=== PATIENT | male | born 1975 | race Caucasian/White ===

== ENCOUNTER 2018-03-17 17:00 | Inpatient (IN) | payer MEDICARE ==
--- NOTE | 2018-03-17 17:56 | ED Physician Chart ---
ED Chief Complaint/HPI - Patient Information Date Seen:: 03/17/18 Time Seen:: 17:40 Chief Complaint:: seizures History of Present Illness:: Patient had four 15 second episodes of body tensing today which apparently are his usual seizures. 20 days ago Depakote was discontinued and the patient prescribed phenobarbital 97.2 mg at bed time. Allergies:: Allergies Allergy/AdvReac Type Severity Reaction Status Date / Time No Known Allergies Allergy Verified 03/17/18 17:49 Historian:: EMS Review:: Transfer documents Reviewed ED Review of Systems - Review of Systems General/Constitutional: No fever, No chills Skin: No skin lesions Head: No headache Eyes: No loss of vision ENT: No earache Neck: No neck pain, No swelling Cardio Vascular: No chest pain, No palpitations Pulmonary: No SOB GI: No nausea, No vomiting, No diarrhea G/U: No dysuria, No frequency, No hematuria Musculoskeletal: Back pain, No back pain, No muscle pain Endocrine: No polyuria, No polydipsia Psychiatric: Prior psych history Hematopoietic: No bruising Allergic/Immuno: No urticaria Neurological: No syncope, No focal symptoms ED Past Medical History - Past Medical History Past Medical History: HTN, Thyroid disorder, Arthritis, Other (elevated ammonia ; hypothyroidism cerebral palsy profound mental retardation; spastic diplegia; spastic diplegia) Family History: Other (unavailable) Social History: Care Facility Surgical History: other (not available) Psychiatricy History: Other (severe mental retardation) Medication: Reviewed Family Medical History - Family Member Mother History Unknown: Yes ED Physical Exam - Physical Examination General/Constitutional: Well-developed, well-nourished Other Gen/Cons comments:: Nonverbal Head: Atraumatic Eyes: Lids, conjuctiva normal Skin: Nl inspection, No rash, No skin lesions, No ecchymosis, Well hydrated, No lymphadenopathy ENMT: External ears, nose nl, Nasal exam nl Other ENMT comments:: Edentulous Neck: No nuchal rigidity Respiratory: Nl effort/Exclusion, Clear to Auscultation Cardio Vascular: RRR, No murmur, gallop, rubs, NL S1 S2 GI: No tenderness/rebounding/guarding, No organomegaly : No CVA tenderness Extremities: Normal digits & nails Neuro/Psych: No focal deficits ED Labs/Radiology/EKG Results - Lab Results Results: Laboratory Results - last 24 hr 03/17/18 03/17/18 03/17/18 18:15 18:15 18:15 WBC 9.5 RBC 5.49 Hgb 16.3 Hct 47.1 MCV 85.7 MCH 29.7 MCHC Differential 34.7 RDW 13.0 Plt Count 238 MPV 6.1 Neutrophils % 59.5 Lymphocytes % 30.3 Monocytes % 7.1 Eosinophils % 1.7 Basophils % 1.4 Sodium 133 L Potassium 4.8 Chloride 101 Carbon Dioxide 22.7 Anion Gap 14.1 BUN 13 Creatinine 0.7 Est GFR ( Amer) > 60.0 Est GFR (Non-Af Amer) > 60.0 BUN/Creatinine Ratio 18.6 Glucose 91 Calcium 8.9 Total Bilirubin 0.4 AST 27 ALT 35 Alkaline Phosphatase 56 Ammonia 53 Total Protein 7.0 Albumin 4.2 Globulin 2.8 Albumin/Globulin Ratio 1.5 ED Assessment - Assessment General Assessment: At 1944 phenobarbital level still pending as it is a send out test. As of 1946 patient has had no seizure activity in the emergency department. ED Septic Shock - . Is Septic Shock (SBP<90, OR Lactate>4 mmol\L) present?: No ED Reassessment (Disposition) - Reassessment Reassessment Condition:: Unchanged - Diagnosis Diagnosis:: Seizures; known seizure disorder; severe mental retardation; diplegia - Patient Disposition Admitted to:: Telemetry Spoke to:: Stefano Stephens Admitting Medical Physician:: Stefano Stephens Condition at Disposition:: Stable, Unchanged
[2018-03-17 18:23] LABS: % BASOPHILS 1.4 % (0.0-2.0); % EOSINOPHILS 1.7 % (0.0-5.0); % LYMPHOCYTES 30.3 % (20.0-50.0); % MONOCYTES 7.1 % (2.0-10.0); % NEUTROPHILS 59.5 % (40.0-80.0); BASOPHILE ABSOLUTE 0.1 Th/cumm (0-0.2); EOSINOPHILE ABSOLUTE 0.2 Th/cmm (0.1-0.4); HEMATOCRIT 47.1 % (41.0-60); HEMOGLOBIN 16.3 gm/dL (12-16); LYMPHOCYTE ABSOLUTE 2.9 Th/cmm (1.5-3.0); MEAN CELL VOLUME 85.7 fl (80-99); MEAN CORPUSCULAR HEMOGLOBIN 29.7 pg (26.0-30.0); MEAN CORPUSCULAR HGB CONC 34.7 pg (28.0-36.0); MEAN PLATELET VOLUME 6.1 fl; MONOCYTE ABSOLUTE 0.7 Th/cmm (0.3-1.0); NEUTROPHILE ABSOLUTE 5.6 Th/cmm (1.8-8.0); PLATELET COUNT 238 Th/cmm (150-400); RED BLOOD COUNT 5.49 Mil/cmm (4.30-5.70); WHITE BLOOD COUNT 9.5 Th/cmm (4.8-10.8)
[2018-03-17 18:46] LABS: ALB/GLOB RATIO 1.5 (1.0-1.8); ALBUMIN 4.2 gm/dL (4.2-5.5); ALKALINE PHOSPHATASE 56 U/L (34-104); ANION GAP 14.1 (7.0-16.0); BILIRUBIN,TOTAL 0.4 mg/dL (0.3-1.0); BUN - UREA NITROGEN 13 mg/dL (7-25); CALCIUM SERUM 8.9 mg/dL (8.6-10.3); CARBON DIOXIDE 22.7 mEq/L (21.0-31.0); CHLORIDE 101 mEq/L (98-107); CREATININE - SERUM 0.7 mg/dL (0.7-1.3); GFR AFRICAN-AMERICAN > 60.0 ml/min (>90); GFR NON AFRICAN-AMERICAN > 60.0 ml/min; GLUCOSE 91 mg/dL (70-105); POTASSIUM SERUM 4.8 mEq/L (3.5-5.1); SGOT 27 U/L (13-39); SGPT/ALT 35 U/L (7-52); SODIUM SERUM 133 mEq/L (136-145)
[2018-03-17] MEDS ORDERED: ACETAMINOPHEN 650 MG PO PRN (20:02)
[2018-03-17] MEDS ORDERED: Ipratropium Neb 0.5 mg/2.5 mL UD HHN PRN (20:07)
[2018-03-17] MEDS ORDERED: Albuterol Nebulizer 2.5mg/3mL HHN PRN (20:07)
[2018-03-17] MEDS ORDERED: Non-Formulary Item 1 EA (Lactulose [Lactulose] 30 ML) PO SCH (21:00)
[2018-03-17] MEDS: D5-0.9%NS 1,000 ML IV SCH (21:31)
[2018-03-17] MEDS: Lactulose 10 Gm/15 mL 30mL UDC PO SCH (21:33)
[2018-03-17] MEDS ORDERED: Guaifenesin DM 10 ML UDC PO PRN (23:37)
[2018-03-18] MEDS: Levothyroxine 0.075 Mg Tab PO SCH (06:39)
[2018-03-18] MEDS: D5-0.9%NS 1,000 ML IV SCH ×2 (06:40→16:29)
[2018-03-18] MEDS ORDERED: APAP/Codeine 300 mg/30 mg Tab PO PRN (09:00)
[2018-03-18] MEDS: Benztropine 1 MG TAB PO SCH ×2 (09:58→17:13)
[2018-03-18] MEDS: Lactulose 10 Gm/15 mL 30mL UDC PO SCH ×3 (09:58→20:37)
[2018-03-18] MEDS: Calcium Carb/Vit D 500 mg/200 U Tab PO SCH ×2 (09:58→17:13)
[2018-03-18] MEDS: Lactobacillus Rhamnosus GG 15 Billion CFU CAP.SPRINK PO SCH (09:58)
--- NOTE | 2018-03-18 13:18 | Internal Medicine Prog Note ---
Internal Medicine Subjective - Subjective Service Date: 03/18/18 ([id number] [facility] ) Internal Medicine Objective - Results Result Diagrams: 03/17/18 18:15 03/17/18 18:15 Recent Labs: Laboratory Last Values WBC 9.5 Th/cmm (4.8-10.8) 03/17/18 18:15 RBC 5.49 Mil/cmm (4.30-5.70) 03/17/18 18:15 Hgb 16.3 gm/dL (12-16) 03/17/18 18:15 Hct 47.1 % (41.0-60) 03/17/18 18:15 MCV 85.7 fl (80-99) 03/17/18 18:15 MCH 29.7 pg (26.0-30.0) 03/17/18 18:15 MCHC Differential 34.7 pg (28.0-36.0) 03/17/18 18:15 RDW 13.0 % (11.5-20.0) 03/17/18 18:15 Plt Count 238 Th/cmm (150-400) 03/17/18 18:15 MPV 6.1 fl 03/17/18 18:15 Neutrophils % 59.5 % (40.0-80.0) 03/17/18 18:15 Lymphocytes % 30.3 % (20.0-50.0) 03/17/18 18:15 Monocytes % 7.1 % (2.0-10.0) 03/17/18 18:15 Eosinophils % 1.7 % (0.0-5.0) 03/17/18 18:15 Basophils % 1.4 % (0.0-2.0) 03/17/18 18:15 Sodium 133 mEq/L (136-145) L 03/17/18 18:15 Potassium 4.8 mEq/L (3.5-5.1) 03/17/18 18:15 Chloride 101 mEq/L (98-107) 03/17/18 18:15 Carbon Dioxide 22.7 mEq/L (21.0-31.0) 03/17/18 18:15 Anion Gap 14.1 (7.0-16.0) 03/17/18 18:15 BUN 13 mg/dL (7-25) 03/17/18 18:15 Creatinine 0.7 mg/dL (0.7-1.3) 03/17/18 18:15 Est GFR ( Amer) > 60.0 ml/min (>90) 03/17/18 18:15 Est GFR (Non-Af Amer) > 60.0 ml/min 03/17/18 18:15 BUN/Creatinine Ratio 18.6 03/17/18 18:15 Glucose 91 mg/dL (70-105) 03/17/18 18:15 Calcium 8.9 mg/dL (8.6-10.3) 03/17/18 18:15 Total Bilirubin 0.4 mg/dL (0.3-1.0) 03/17/18 18:15 AST 27 U/L (13-39) 03/17/18 18:15 ALT 35 U/L (7-52) 03/17/18 18:15 Alkaline Phosphatase 56 U/L (34-104) 03/17/18 18:15 Ammonia 53 umol/L (16-53) 03/17/18 18:15 Total Protein 7.0 gm/dL (6.0-8.3) 03/17/18 18:15 Albumin 4.2 gm/dL (4.2-5.5) 03/17/18 18:15 Globulin 2.8 gm/dL 03/17/18 18:15 Albumin/Globulin Ratio 1.5 (1.0-1.8) 03/17/18 18:15 Phenobarbital 12.7 ug/ml (10-40.0) 03/17/18 18:15 - Physical Exam Vitals and I&O: Vital Signs Temp 97.9 F 03/18/18 11:33 Pulse 94 03/18/18 11:33 Resp 18 03/18/18 13:08 BP 148/68 03/18/18 11:33 Pulse Ox 97 03/18/18 11:33 Intake & Output 03/17/18 03/18/18 03/18/18 18:59 06:59 18:59 Intake Total 1155 Output Total 0 Balance 1155 Weight (lbs) 180 lb 179 lb 9.6 oz Intake: Intake, IV Amount 915 D5-0.9%Ns 1,000 ml @ 100 915 mls/hr IV .Q10H [facility] Rx#: [id number] Oral 240 Output: Stool 0 Other: # Voids 2 # Bowel Movements 0 Weight Source Estimated Bedscale Active Medications: Current Medications Acetaminophen (Tylenol) 650 mg PO Q4H PRN PRN Reason: Pain or Fever >101 Stop: 05/16/18 23:30 Acetaminophen/Codeine Phosphate (Tylenol W/Codeine #3) 1 tab PO Q24H PRN PRN Reason: Pain (Moderate) Stop: 05/17/18 08:59 Albuterol Sulfate (Albuterol 2.5mg/3ml Neb Ud) 2.5 mg HHN Q2HRT PRN PRN Reason: Shortness of Breath or Wheeze Stop: 05/16/18 20:06 Benztropine Mesylate (Cogentin) 2 mg PO BID [facility] Stop: 05/17/18 08:59 Last Admin: 03/18/18 09:58 Dose: Not Given Calcium/Vitamin D (Oscal W/Vitamin D) 1 tab PO BID [facility] Stop: 05/17/18 08:59 Last Admin: 03/18/18 09:58 Dose: Not Given Cholecalciferol (Vitamin D3) 2,000 iu PO DAILY [facility] Stop: 05/17/18 08:59 Last Admin: 03/18/18 09:58 Dose: Not Given Docusate Sodium (Colace) 250 mg PO BID [facility] Stop: 05/17/18 08:59 Last Admin: 03/18/18 09:58 Dose: Not Given Guaifenesin/Dextromethorphan (Robitussin Dm) 10 ml PO Q6H PRN PRN Reason: Cough Stop: 05/16/18 23:36 Dextrose/Sodium Chloride (D5-0.9%Ns) 1,000 mls @ 100 mls/hr IV .Q10H [facility] Stop: 05/16/18 20:14 Last Admin: 03/18/18 06:40 Dose: 100 mls/hr Ipratropium [place] (Atrovent Neb 0.5mg/2.5ml) 0.5 mg HHN Q2HRT PRN PRN Reason: Shortness of Breath or Wheeze Stop: 05/16/18 20:06 Lactobacillus Rhamnosus (Culturelle 15b) 1 each PO DAILY [facility] Stop: 05/17/18 08:59 Last Admin: 03/18/18 09:58 Dose: Not Given Lactulose (Cephulac) 30 gm PO TID [facility] Stop: 05/16/18 21:29 Last Admin: 03/18/18 09:58 Dose: Not Given Lamotrigine (Lamictal) 100 mg PO BID [facility]; Protocol Stop: 05/17/18 08:59 Last Admin: 03/18/18 09:58 Dose: Not Given Levetiracetam (Keppra) 2,000 mg PO BID [facility] Stop: 05/17/18 00:00 Last Admin: 03/18/18 08:21 Dose: 2,000 mg Levocarnitine (Carnitor) 990 mg PO TID [facility] Stop: 05/16/18 20:59 Last Admin: 03/18/18 09:58 Dose: Not Given Levothyroxine Sodium (Synthroid) 0.075 mg PO QDAC [facility] Stop: 05/17/18 07:29 Last Admin: 03/18/18 06:39 Dose: 0.075 mg Loratadine (Claritin) 10 mg PO Q24HR PRN PRN Reason: Allergy Symptoms Stop: 05/16/18 20:01 Lorazepam (Ativan) 1 mg IV Q4H PRN; Protocol PRN Reason: Seizure Stop: 05/16/18 20:06 Magnesium Oxide (Mag-Oxide) 400 mg PO BID [facility] Stop: 05/17/18 08:59 Last Admin: 03/18/18 09:58 Dose: Not Given Ondansetron HCl (Zofran) 4 mg IV Q8H PRN PRN Reason: Nausea / Vomiting Stop: 05/16/18 20:06 Phenobarbital (Phenobarbital) 97.2 mg PO BID [facility] Stop: 05/17/18 13:29 Sodium Chloride (Nacl Tab) 2 gm PO DAILY [facility] Stop: 05/17/18 08:59 Last Admin: 03/18/18 09:58 Dose: Not Given Tamsulosin HCl (Flomax) 0.4 mg PO BID [facility] Stop: 05/17/18 16:59 Topiramate (Topamax) 200 mg PO BID [facility] Stop: 05/16/18 23:44 Last Admin: 03/18/18 10:00 Dose: 200 mg Ziprasidone (Geodon) 20 mg PO HS [facility]; Protocol Stop: 05/16/18 20:59 Last Admin: 03/17/18 21:32 Dose: 20 mg
--- NOTE | 2018-03-18 14:47 | History & Physical ---
ADMIT DATE: 03/18/2018 CHIEF COMPLAINT: Seizures. HISTORY OF PRESENT ILLNESS: This is a 42-year-old male who is a retirement resident, admitted to the telemetry unit secondary to four 15 second episode of seizures. For further management, the patient is now admitted here to the telemetry unit. PAST MEDICAL HISTORY: Hypertension, hypothyroidism, arthritis, hyperammonemia, cerebral palsy, profound MR, spastic diplegia. FAMILY HISTORY: Noncontributory. SOCIAL HISTORY: The patient is a retirement resident, requiring 24-hour nursing care. REVIEW OF SYSTEMS: Unable to obtain due to the patient's mental status. PHYSICAL EXAMINATION: GENERAL: The patient is awake, appears chronically ill, no apparent distress. VITAL SIGNS: Temperature 97.9, heart rate 94, blood pressure 148/68, respiration 18, O2 97%. HEENT: Head normocephalic, atraumatic. NECK: Supple. No mass. LUNGS: Few rhonchi. CARDIOVASCULAR: Regular rate and rhythm. ABDOMEN: Soft, nontender. EXTREMITIES: No trace of edema noted. LABORATORY AND DIAGNOSTIC DATA: WBC 9.5, H and H 16.3 and 47.1, platelet of 238. Sodium 133, potassium 4.8, chloride 101, BUN 13, creatinine 0.7. ASSESSMENT: Uncontrolled seizures, hypertension, hypothyroidism, cerebral palsy, mitral regurgitation, spastic diplegia. PLAN: The patient to be admitted to telemetry unit. We will get Neurology on the case. Seizure precautions will be initiated. We will get followup labs for tomorrow morning. Keep the patient on IV fluids for hydration. We will continue to monitor this patient. JOB# [id number]
[2018-03-19] MEDS: D5-0.9%NS 1,000 ML IV SCH (03:59)
[2018-03-19] MEDS: Levothyroxine 0.075 Mg Tab PO SCH (06:41)
[2018-03-19 08:58] LABS: % BASOPHILS 1.7 % (0.0-2.0); % EOSINOPHILS 2.1 % (0.0-5.0); % LYMPHOCYTES 27.8 % (20.0-50.0); % MONOCYTES 6.2 % (2.0-10.0); % NEUTROPHILS 62.2 % (40.0-80.0); BASOPHILE ABSOLUTE 0.1 Th/cumm (0-0.2); EOSINOPHILE ABSOLUTE 0.2 Th/cmm (0.1-0.4); HEMATOCRIT 46.5 % (41.0-60); HEMOGLOBIN 15.5 gm/dL (12-16); LYMPHOCYTE ABSOLUTE 2.3 Th/cmm (1.5-3.0); MEAN CELL VOLUME 86.3 fl (80-99); MEAN CORPUSCULAR HEMOGLOBIN 28.8 pg (26.0-30.0); MEAN CORPUSCULAR HGB CONC 33.3 pg (28.0-36.0); MEAN PLATELET VOLUME 6.6 fl; MONOCYTE ABSOLUTE 0.5 Th/cmm (0.3-1.0); NEUTROPHILE ABSOLUTE 5.1 Th/cmm (1.8-8.0); PLATELET COUNT 235 Th/cmm (150-400); RED BLOOD COUNT 5.38 Mil/cmm (4.30-5.70); RED CELL DISTRIBUTION WIDTH 13.2 % (11.5-20.0); WHITE BLOOD COUNT 8.2 Th/cmm (4.8-10.8)
[2018-03-19 09:12] LABS: ANION GAP 11.5 (7.0-16.0); BUN - UREA NITROGEN 7 mg/dL (7-25); CALCIUM SERUM 8.5 mg/dL (8.6-10.3); CARBON DIOXIDE 21.3 mEq/L (21.0-31.0); CHLORIDE 105 mEq/L (98-107); CREATININE - SERUM 0.5 mg/dL (0.7-1.3); GFR AFRICAN-AMERICAN > 60.0 ml/min (>90); GFR NON AFRICAN-AMERICAN > 60.0 ml/min; GLUCOSE 114 mg/dL (70-105); POTASSIUM SERUM 3.8 mEq/L (3.5-5.1); SODIUM SERUM 134 mEq/L (136-145)
[2018-03-19] MEDS: Lactulose 10 Gm/15 mL 30mL UDC PO SCH ×3 (09:56→20:42)
[2018-03-19] MEDS: Lactobacillus Rhamnosus GG 15 Billion CFU CAP.SPRINK PO SCH (09:56)
[2018-03-19] MEDS: Calcium Carb/Vit D 500 mg/200 U Tab PO SCH ×2 (09:56→17:32)
[2018-03-19] MEDS: Benztropine 1 MG TAB PO SCH ×2 (09:56→17:32)
--- NOTE | 2018-03-19 12:46 | Internal Medicine Prog Note ---
Internal Medicine Subjective - Subjective Patient seen and examined:: with staff, chart reviewed, other (diffucult to feed ) Patient is:: asleep, non-verbal, non-interactive, eyes closed, in bed, stares blankly Patient Complaints of:: congestion Per staff patient has:: no adverse event, no episodes of fall, poor appetite, poor oral intake, tolerating meds Internal Medicine Objective - Results Result Diagrams: 03/19/18 08:51 03/19/18 08:51 Recent Labs: Laboratory Last Values WBC 8.2 Th/cmm (4.8-10.8) 03/19/18 08:51 RBC 5.38 Mil/cmm (4.30-5.70) 03/19/18 08:51 Hgb 15.5 gm/dL (12-16) 03/19/18 08:51 Hct 46.5 % (41.0-60) 03/19/18 08:51 MCV 86.3 fl (80-99) 03/19/18 08:51 MCH 28.8 pg (26.0-30.0) 03/19/18 08:51 MCHC Differential 33.3 pg (28.0-36.0) 03/19/18 08:51 RDW 13.2 % (11.5-20.0) 03/19/18 08:51 Plt Count 235 Th/cmm (150-400) 03/19/18 08:51 MPV 6.6 fl 03/19/18 08:51 Neutrophils % 62.2 % (40.0-80.0) 03/19/18 08:51 Lymphocytes % 27.8 % (20.0-50.0) 03/19/18 08:51 Monocytes % 6.2 % (2.0-10.0) 03/19/18 08:51 Eosinophils % 2.1 % (0.0-5.0) 03/19/18 08:51 Basophils % 1.7 % (0.0-2.0) 03/19/18 08:51 Sodium 134 mEq/L (136-145) L 03/19/18 08:51 Potassium 3.8 mEq/L (3.5-5.1) 03/19/18 08:51 Chloride 105 mEq/L (98-107) 03/19/18 08:51 Carbon Dioxide 21.3 mEq/L (21.0-31.0) 03/19/18 08:51 Anion Gap 11.5 (7.0-16.0) 03/19/18 08:51 BUN 7 mg/dL (7-25) 03/19/18 08:51 Creatinine 0.5 mg/dL (0.7-1.3) L 03/19/18 08:51 Est GFR ( Amer) > 60.0 ml/min (>90) 03/19/18 08:51 Est GFR (Non-Af Amer) > 60.0 ml/min 03/19/18 08:51 BUN/Creatinine Ratio 14.0 03/19/18 08:51 Glucose 114 mg/dL (70-105) H 03/19/18 08:51 Calcium 8.5 mg/dL (8.6-10.3) L 03/19/18 08:51 Total Bilirubin 0.4 mg/dL (0.3-1.0) 03/17/18 18:15 AST 27 U/L (13-39) 03/17/18 18:15 ALT 35 U/L (7-52) 03/17/18 18:15 Alkaline Phosphatase 56 U/L (34-104) 03/17/18 18:15 Ammonia 90 umol/L (16-53) H 03/19/18 08:51 B-Natriuretic Peptide 19.5 pg/mL (5.0-100.0) 03/19/18 08:51 Total Protein 7.0 gm/dL (6.0-8.3) 03/17/18 18:15 Albumin 4.2 gm/dL (4.2-5.5) 03/17/18 18:15 Globulin 2.8 gm/dL 03/17/18 18:15 Albumin/Globulin Ratio 1.5 (1.0-1.8) 03/17/18 18:15 Phenobarbital 12.7 ug/ml (10-40.0) 03/17/18 18:15 - Physical Exam Vitals and I&O: Vital Signs Temp 96.7 F 03/19/18 08:00 Pulse 72 03/19/18 08:00 Resp 18 03/19/18 10:00 BP 145/98 03/19/18 08:00 Pulse Ox 100 03/19/18 08:00 Intake & Output 03/18/18 03/19/18 03/19/18 18:59 06:59 18:59 Intake Total 1496.724 0856 Balance 3949.841 2739 Weight (lbs) 81.828 kg 81.919 kg Intake: Intake, IV Amount 334.550 5763 D5-0.9%Ns 1,000 ml @ 100 159.158 8033 mls/hr IV .Q10H [facility] Rx#: [id number] Oral 50 60 Other: # Voids 5 1 # Bowel Movements 0 Weight Source Bedscale Bedscale Active Medications: Current Medications Acetaminophen (Tylenol) 650 mg PO Q4H PRN PRN Reason: Pain or Fever >101 Stop: 05/16/18 23:30 Acetaminophen/Codeine Phosphate (Tylenol W/Codeine #3) 1 tab PO Q24H PRN PRN Reason: Pain (Moderate) Stop: 05/17/18 08:59 Albuterol Sulfate (Albuterol 2.5mg/3ml Neb Ud) 2.5 mg HHN Q2HRT PRN PRN Reason: Shortness of Breath or Wheeze Stop: 05/16/18 20:06 Benztropine Mesylate (Cogentin) 2 mg PO BID [facility] Stop: 05/17/18 08:59 Last Admin: 03/19/18 09:56 Dose: Not Given Calcium/Vitamin D (Oscal W/Vitamin D) 1 tab PO BID [facility] Stop: 05/17/18 08:59 Last Admin: 03/19/18 09:56 Dose: Not Given Cholecalciferol (Vitamin D3) 2,000 iu PO DAILY [facility] Stop: 05/17/18 08:59 Last Admin: 03/19/18 09:56 Dose: Not Given Docusate Sodium (Colace) 250 mg PO BID [facility] Stop: 05/17/18 08:59 Last Admin: 03/19/18 09:56 Dose: Not Given Guaifenesin/Dextromethorphan (Robitussin Dm) 10 ml PO Q6H PRN PRN Reason: Cough Stop: 05/16/18 23:36 Levetiracetam 2,000 mg/ Sodium (Chloride) 120 mls @ 400 mls/hr IV Q12H [facility] Stop: 05/18/18 12:44 Ipratropium [place] (Atrovent Neb 0.5mg/2.5ml) 0.5 mg HHN Q2HRT PRN PRN Reason: Shortness of Breath or Wheeze Stop: 05/16/18 20:06 Lactobacillus Rhamnosus (Culturelle 15b) 1 each PO DAILY [facility] Stop: 05/17/18 08:59 Last Admin: 03/19/18 09:56 Dose: Not Given Lactulose (Cephulac) 30 gm PO TID [facility] Stop: 05/16/18 21:29 Last Admin: 03/19/18 09:56 Dose: Not Given Lamotrigine (Lamictal) 100 mg PO BID [facility]; Protocol Stop: 05/17/18 08:59 Last Admin: 03/19/18 09:56 Dose: Not Given Levocarnitine (Carnitor) 990 mg PO TID [facility] Stop: 05/16/18 20:59 Last Admin: 03/19/18 09:56 Dose: Not Given Levothyroxine Sodium (Synthroid) 0.075 mg PO QDAC [facility] Stop: 05/17/18 07:29 Last Admin: 03/19/18 06:41 Dose: 0.075 mg Loratadine (Claritin) 10 mg PO Q24HR PRN PRN Reason: Allergy Symptoms Stop: 05/16/18 20:01 Lorazepam (Ativan) 1 mg IV Q4H PRN; Protocol PRN Reason: Seizure Stop: 05/16/18 20:06 Magnesium Oxide (Mag-Oxide) 400 mg PO BID [facility] Stop: 05/17/18 08:59 Last Admin: 03/19/18 09:56 Dose: Not Given Ondansetron HCl (Zofran) 4 mg IV Q8H PRN PRN Reason: Nausea / Vomiting Stop: 05/16/18 20:06 Phenobarbital (Phenobarbital) 97.2 mg PO BID [facility] Stop: 05/17/18 13:29 Last Admin: 03/19/18 09:56 Dose: Not Given Sodium Chloride (Nacl Tab) 2 gm PO DAILY [facility] Stop: 05/17/18 08:59 Last Admin: 03/19/18 09:56 Dose: Not Given Tamsulosin HCl (Flomax) 0.4 mg PO BID [facility] Stop: 05/17/18 16:59 Last Admin: 03/19/18 09:56 Dose: Not Given Topiramate (Topamax) 200 mg PO BID [facility] Stop: 05/16/18 23:44 Last Admin: 03/19/18 09:07 Dose: 200 mg Ziprasidone (Geodon) 20 mg PO HS [facility]; Protocol Stop: 05/16/18 20:59 Last Admin: 03/18/18 20:38 Dose: 20 mg General: demented, disheveled HEENT: NC/AT, PERRLA Neck: deformity Lungs: congested Cardiovascular: RRR, Normal S1, Normal S2 Abdomen: soft, positive bowel sound Extremities: excoriation, contracture, deformity Internal Medicine Assmt/Plan - Assessment Assessment: ASSESSMENT: Uncontrolled seizures, hypertension, hypothyroidism, cerebral palsy, mitral regurgitation, spastic diplegia. - Plan Plan: PLAN: The patient to be admitted to telemetry unit. We will get Neurology on the case. Seizure precautions will be initiated. We will get followup labs for tomorrow morning. Keep the patient on IV fluids for hydration. We will continue to monitor this patient. change keppra to iv on phenobarbital Nutritional Asmnt/Malnutr-PDOC - Dietary Evaluation Malnutrition Findings (Please click <Entered> for more info): Nutritional Asmnt/Malnutrition Start: 03/18/18 16: 53 Text: Status: Complete Freq: Protocol: Document 03/18/18 16:53 LCHENG (Rec: 03/18/18 17:17 [email or web address] [id number]) Nutritional Asmnt/Malnutrition Patient General Information Nutritional Screening High Risk Diagnosis uncontrolled seizures Pertinent Medical Hx/Surgical Hx HTN, thyroid disorder, arthritis, elevated ammonia, cerabral palsy, mental retardation, spastic diplegia Subjective Information Pt seen lying in bed, AO x 1, non-verbal. Pt is on NPO exept for medication. Per nuser note, pt refused medication today. Current Diet Order/ Nutrition Support NPO Pertinent Medications oscal w/vit D, vit D3, D5-0.9% ns, colace, culturelle, synthroid, mag-oxide, nacl tab Pertinent Labs 03/17 na 133 Nutritional Hx/Data Height 1.75 m Height (Calculated Centimeters) 175.3 Current Weight (lbs) 81.193 kg Weight (Calculated Kilograms) 81.2 Weight (Calculated Grams) 81617.0 [place] Body Weight 160 Body Mass Index (BMI) 26.4 Weight Status Overweight GI Symptoms GI Symptoms None Last BM none noted Difficult in: None Skin Integrity/Comment: rashes at the left back, bilat heels redness, sacrococyx redness Estimated Nutritional Goals BEE in Kcals: Using Current wt Calories/Kcals/Kg 23-27 Kcals Calculated 6616-8514 Protein: Using Current wt Protein g/k.8-1 Protein Calculated 65-81 Fluid: ml 1863-2187ml (1ml/kcal) Nutritional Problem 1. Problem Problem altered nutrition related labs Etiology electrolytes imbalance Signs/Symptoms: Na 133 Malnutrition Alert Is there a minimum of two criteria No selected? Query Text:Check all the applicable criteria. A minimum of two criteria are recommended for diagnosis of either severe or non-severe malnutrition. Malnutrition Related to Morbid Obesity Malnutrition related to morbid obesity No Intervention/Recommendation Comments 1. Monitor NPO status. Recommend swallow eval. 2. If oral diet initiated, recommend regular diet, texture per swallow eval. 3. Monitor PO intake, wt, labs and skin integrity 4. F/U as high risk in 2-3 days, 03/20-03/21 Expected Outcomes/Goals Expected Outcomes/Goals 1. PO intake to meet at least 75% of nutritional needs with tolerance 2. Wt stability, skin to remain intact, labs to approach WNL.
[2018-03-20 05:38] LABS: % BASOPHILS 0.1 % (0.0-2.0); % EOSINOPHILS 2.3 % (0.0-5.0); % LYMPHOCYTES 30.7 % (20.0-50.0); % MONOCYTES 7.2 % (2.0-10.0); % NEUTROPHILS 59.7 % (40.0-80.0); EOSINOPHILE ABSOLUTE 0.2 Th/cmm (0.1-0.4); HEMATOCRIT 49.8 % (41.0-60); HEMOGLOBIN 16.6 gm/dL (12-16); LYMPHOCYTE ABSOLUTE 2.5 Th/cmm (1.5-3.0); MEAN CELL VOLUME 86.4 fl (80-99); MEAN CORPUSCULAR HEMOGLOBIN 28.8 pg (26.0-30.0); MEAN CORPUSCULAR HGB CONC 33.3 pg (28.0-36.0); MEAN PLATELET VOLUME 6.2 fl; MONOCYTE ABSOLUTE 0.6 Th/cmm (0.3-1.0); PLATELET COUNT 257 Th/cmm (150-400); RED BLOOD COUNT 5.77 Mil/cmm (4.30-5.70); RED CELL DISTRIBUTION WIDTH 13.2 % (11.5-20.0); WHITE BLOOD COUNT 8.3 Th/cmm (4.8-10.8)
[2018-03-20 05:56] LABS: BUN - UREA NITROGEN 10 mg/dL (7-25); CALCIUM SERUM 8.6 mg/dL (8.6-10.3); CARBON DIOXIDE 22.7 mEq/L (21.0-31.0); CHLORIDE 101 mEq/L (98-107); CREATININE - SERUM 0.7 mg/dL (0.7-1.3); GFR AFRICAN-AMERICAN > 60.0 ml/min (>90); GFR NON AFRICAN-AMERICAN > 60.0 ml/min; GLUCOSE 112 mg/dL (70-105); MAGNESIUM 1.9 mg/dL (1.9-2.7); POTASSIUM SERUM 3.7 mEq/L (3.5-5.1); SODIUM SERUM 133 mEq/L (136-145)
[2018-03-20] MEDS: Levothyroxine 0.075 Mg Tab PO SCH (06:42)
[2018-03-20] MEDS: Calcium Carb/Vit D 500 mg/200 U Tab PO SCH ×2 (09:11→17:32)
[2018-03-20] MEDS: Lactulose 10 Gm/15 mL 30mL UDC PO SCH ×3 (09:11→20:07)
[2018-03-20] MEDS: Lactobacillus Rhamnosus GG 15 Billion CFU CAP.SPRINK PO SCH (09:11)
[2018-03-20] MEDS: Benztropine 1 MG TAB PO SCH ×2 (09:11→17:32)
--- NOTE | 2018-03-20 15:02 | Internal Medicine Prog Note ---
Internal Medicine Subjective - Subjective Patient seen and examined:: with staff, chart reviewed, other (no seizure) Patient is:: asleep, non-verbal, non-interactive, eyes closed, in bed, stares blankly Patient Complaints of:: congestion Per staff patient has:: no adverse event, no episodes of fall, poor appetite, poor oral intake, tolerating meds Internal Medicine Objective - Results Result Diagrams: 03/20/18 05:29 03/20/18 05:29 Recent Labs: Laboratory Last Values WBC 8.3 Th/cmm (4.8-10.8) 03/20/18 05:29 RBC 5.77 Mil/cmm (4.30-5.70) H 03/20/18 05:29 Hgb 16.6 gm/dL (12-16) 03/20/18 05:29 Hct 49.8 % (41.0-60) 03/20/18 05:29 MCV 86.4 fl (80-99) 03/20/18 05:29 MCH 28.8 pg (26.0-30.0) 03/20/18 05:29 MCHC Differential 33.3 pg (28.0-36.0) 03/20/18 05:29 RDW 13.2 % (11.5-20.0) 03/20/18 05:29 Plt Count 257 Th/cmm (150-400) 03/20/18 05:29 MPV 6.2 fl 03/20/18 05:29 Neutrophils % 59.7 % (40.0-80.0) 03/20/18 05:29 Lymphocytes % 30.7 % (20.0-50.0) 03/20/18 05:29 Monocytes % 7.2 % (2.0-10.0) 03/20/18 05:29 Eosinophils % 2.3 % (0.0-5.0) 03/20/18 05:29 Basophils % 0.1 % (0.0-2.0) 03/20/18 05:29 Sodium 133 mEq/L (136-145) L 03/20/18 05:29 Potassium 3.7 mEq/L (3.5-5.1) 03/20/18 05:29 Chloride 101 mEq/L (98-107) 03/20/18 05:29 Carbon Dioxide 22.7 mEq/L (21.0-31.0) 03/20/18 05:29 Anion Gap 13.0 (7.0-16.0) 03/20/18 05:29 BUN 10 mg/dL (7-25) 03/20/18 05:29 Creatinine 0.7 mg/dL (0.7-1.3) 03/20/18 05:29 Est GFR ( Amer) > 60.0 ml/min (>90) 03/20/18 05:29 Est GFR (Non-Af Amer) > 60.0 ml/min 03/20/18 05:29 BUN/Creatinine Ratio 14.3 03/20/18 05:29 Glucose 112 mg/dL (70-105) H 03/20/18 05:29 Calcium 8.6 mg/dL (8.6-10.3) 03/20/18 05:29 Magnesium 1.9 mg/dL (1.9-2.7) 03/20/18 05:29 Total Bilirubin 0.4 mg/dL (0.3-1.0) 03/17/18 18:15 AST 27 U/L (13-39) 03/17/18 18:15 ALT 35 U/L (7-52) 03/17/18 18:15 Alkaline Phosphatase 56 U/L (34-104) 03/17/18 18:15 Ammonia 90 umol/L (16-53) H 03/19/18 08:51 B-Natriuretic Peptide 19.5 pg/mL (5.0-100.0) 03/19/18 08:51 Total Protein 7.0 gm/dL (6.0-8.3) 03/17/18 18:15 Albumin 4.2 gm/dL (4.2-5.5) 03/17/18 18:15 Globulin 2.8 gm/dL 03/17/18 18:15 Albumin/Globulin Ratio 1.5 (1.0-1.8) 03/17/18 18:15 Phenobarbital 12.7 ug/ml (10-40.0) 03/17/18 18:15 - Physical Exam Vitals and I&O: Vital Signs Temp 97.7 F 03/20/18 11:41 Pulse 80 03/20/18 11:41 Resp 18 10/28/18 14:00 BP 153/93 03/20/18 11:41 Pulse Ox 96 03/20/18 11:41 Intake & Output 03/19/18 03/20/18 03/20/18 18:59 06:59 18:59 Intake Total 370 320 Balance 370 320 Weight (lbs) 82.554 kg 81.964 kg Intake: Intake, IV Amount 270 270 Levetiracetam 2,000 mg In 270 270 Sodium Chloride 0.9% 250 ml @ 250 mls/hr IV Q12H [facility] Rx#:[id number] Oral 100 50 Other: # Voids 3 2 # Bowel Movements 0 0 Weight Source Bedscale Bedscale Active Medications: Current Medications Acetaminophen (Tylenol) 650 mg PO Q4H PRN PRN Reason: Pain or Fever >101 Stop: 05/16/18 23:30 Acetaminophen/Codeine Phosphate (Tylenol W/Codeine #3) 1 tab PO Q24H PRN PRN Reason: Pain (Moderate) Stop: 05/17/18 08:59 Albuterol Sulfate (Albuterol 2.5mg/3ml Neb Ud) 2.5 mg HHN Q2HRT PRN PRN Reason: Shortness of Breath or Wheeze Stop: 05/16/18 20:06 Benztropine Mesylate (Cogentin) 2 mg PO BID [facility] Stop: 05/17/18 08:59 Last Admin: 03/20/18 09:11 Dose: Not Given Calcium/Vitamin D (Oscal W/Vitamin D) 1 tab PO BID [facility] Stop: 05/17/18 08:59 Last Admin: 03/20/18 09:11 Dose: Not Given Cholecalciferol (Vitamin D3) 2,000 iu PO DAILY [facility] Stop: 05/17/18 08:59 Last Admin: 03/20/18 09:11 Dose: Not Given Docusate Sodium (Colace) 250 mg PO BID [facility] Stop: 05/17/18 08:59 Last Admin: 03/20/18 09:11 Dose: Not Given Guaifenesin/Dextromethorphan (Robitussin Dm) 10 ml PO Q6H PRN PRN Reason: Cough Stop: 05/16/18 23:36 Levetiracetam 2,000 mg/ Sodium (Chloride) 270 mls @ 250 mls/hr IV Q12H [facility] Stop: 05/18/18 13:59 Last Admin: 03/20/18 14:19 Dose: 250 mls/hr Ipratropium [place] (Atrovent Neb 0.5mg/2.5ml) 0.5 mg HHN Q2HRT PRN PRN Reason: Shortness of Breath or Wheeze Stop: 05/16/18 20:06 Lactobacillus Rhamnosus (Culturelle 15b) 1 each PO DAILY [facility] Stop: 05/17/18 08:59 Last Admin: 03/20/18 09:11 Dose: Not Given Lactulose (Cephulac) 30 gm PO TID [facility] Stop: 05/16/18 21:29 Last Admin: 03/20/18 14:20 Dose: Not Given Lamotrigine (Lamictal) 100 mg PO BID [facility]; Protocol Stop: 05/17/18 08:59 Last Admin: 03/20/18 09:11 Dose: Not Given Levocarnitine (Carnitor) 990 mg PO TID [facility] Stop: 05/16/18 20:59 Last Admin: 03/20/18 14:20 Dose: Not Given Levothyroxine Sodium (Synthroid) 0.075 mg PO QDAC [facility] Stop: 05/17/18 07:29 Last Admin: 03/20/18 06:42 Dose: 0.075 mg Loratadine (Claritin) 10 mg PO Q24HR PRN PRN Reason: Allergy Symptoms Stop: 05/16/18 20:01 Lorazepam (Ativan) 1 mg IV Q4H PRN; Protocol PRN Reason: Seizure Stop: 05/16/18 20:06 Magnesium Oxide (Mag-Oxide) 400 mg PO BID [facility] Stop: 05/17/18 08:59 Last Admin: 03/20/18 09:11 Dose: Not Given Ondansetron HCl (Zofran) 4 mg IV Q8H PRN PRN Reason: Nausea / Vomiting Stop: 05/16/18 20:06 Phenobarbital (Phenobarbital) 97.2 mg PO BID [facility] Stop: 05/17/18 13:29 Last Admin: 03/20/18 09:11 Dose: Not Given Sodium Chloride (Nacl Tab) 2 gm PO DAILY [facility] Stop: 05/17/18 08:59 Last Admin: 03/20/18 09:12 Dose: Not Given Tamsulosin HCl (Flomax) 0.4 mg PO BID [facility] Stop: 05/17/18 16:59 Last Admin: 03/20/18 09:09 Dose: 0.4 mg Topiramate (Topamax) 200 mg PO BID [facility] Stop: 05/16/18 23:44 Last Admin: 03/20/18 09:12 Dose: Not Given Ziprasidone (Geodon) 20 mg PO HS [facility]; Protocol Stop: 05/16/18 20:59 Last Admin: 03/19/18 20:43 Dose: 20 mg General: demented, disheveled HEENT: NC/AT, PERRLA Neck: deformity Lungs: congested Cardiovascular: RRR, Normal S1, Normal S2 Abdomen: soft, positive bowel sound Extremities: excoriation, contracture, deformity Internal Medicine Assmt/Plan - Assessment Assessment: ASSESSMENT: Uncontrolled seizures, hypertension, hypothyroidism, cerebral palsy, mitral regurgitation, spastic diplegia. - Plan Plan: PLAN: The patient to be admitted to telemetry unit. We will get Neurology on the case. Seizure precautions will be initiated. We will get followup labs for tomorrow morning. Keep the patient on IV fluids for hydration. We will continue to monitor this patient. change keppra to iv on phenobarbital Nutritional Asmnt/Malnutr-PDOC - Dietary Evaluation Malnutrition Findings (Please click <Entered> for more info): Nutritional Asmnt/Malnutrition Start: 03/18/18 16: 53 Text: Status: Complete Freq: Protocol: Document 03/18/18 16:53 LCHENG (Rec: 03/18/18 17:17 [email or web address]) Nutritional Asmnt/Malnutrition Patient General Information Nutritional Screening High Risk Diagnosis uncontrolled seizures Pertinent Medical Hx/Surgical Hx HTN, thyroid disorder, arthritis, elevated ammonia, cerabral palsy, mental retardation, spastic diplegia Subjective Information Pt seen lying in bed, AO x 1, non-verbal. Pt is on NPO exept for medication. Per nuser note, pt refused medication today. Current Diet Order/ Nutrition Support NPO Pertinent Medications oscal w/vit D, vit D3, D5-0.9% ns, colace, culturelle, synthroid, mag-oxide, nacl tab Pertinent Labs 03/17 na 133 Nutritional Hx/Data Height 1.75 m Height (Calculated Centimeters) 175.3 Current Weight (lbs) 81.193 kg Weight (Calculated Kilograms) 81.2 Weight (Calculated Grams) 16679.0 [place] Body Weight 160 Body Mass Index (BMI) 26.4 Weight Status Overweight GI Symptoms GI Symptoms None Last BM none noted Difficult in: None Skin Integrity/Comment: rashes at the left back, bilat heels redness, sacrococyx redness Estimated Nutritional Goals BEE in Kcals: Using Current wt Calories/Kcals/Kg 23-27 Kcals Calculated 5937-4776 Protein: Using Current wt Protein g/k.8-1 Protein Calculated 65-81 Fluid: ml 1863-2187ml (1ml/kcal) Nutritional Problem 1. Problem Problem altered nutrition related labs Etiology electrolytes imbalance Signs/Symptoms: Na 133 Malnutrition Alert Is there a minimum of two criteria No selected? Query Text:Check all the applicable criteria. A minimum of two criteria are recommended for diagnosis of either severe or non-severe malnutrition. Malnutrition Related to Morbid Obesity Malnutrition related to morbid obesity No Intervention/Recommendation Comments 1. Monitor NPO status. Recommend swallow eval. 2. If oral diet initiated, recommend regular diet, texture per swallow eval. 3. Monitor PO intake, wt, labs and skin integrity 4. F/U as high risk in 2-3 days, 03/20-03/21 Expected Outcomes/Goals Expected Outcomes/Goals 1. PO intake to meet at least 75% of nutritional needs with tolerance 2. Wt stability, skin to remain intact, labs to approach WNL.
[2018-03-20] MEDS ORDERED: D5-0.45NS 1,000 ML IV SCH (16:00)
[2018-03-21] MEDS: Levothyroxine 0.075 Mg Tab PO SCH (06:46)
[2018-03-21] MEDS: Calcium Carb/Vit D 500 mg/200 U Tab PO SCH (09:13)
[2018-03-21] MEDS: Lactulose 10 Gm/15 mL 30mL UDC PO SCH ×2 (09:14→13:14)
[2018-03-21] MEDS: Lactobacillus Rhamnosus GG 15 Billion CFU CAP.SPRINK PO SCH (09:14)
[2018-03-21] MEDS: Benztropine 1 MG TAB PO SCH (09:14)
--- NOTE | 2018-03-21 13:53 | Internal Medicine Prog Note ---
Internal Medicine Subjective - Subjective Service Date: 03/21/18 ([id number]) Patient is:: asleep, non-verbal, non-interactive, eyes closed, in bed, stares blankly Patient Complaints of:: congestion Per staff patient has:: no adverse event, no episodes of fall, poor appetite, poor oral intake, tolerating meds Internal Medicine Objective - Results Result Diagrams: 03/20/18 05:29 03/20/18 05:29 Recent Labs: Laboratory Last Values WBC 8.3 Th/cmm (4.8-10.8) 03/20/18 05:29 RBC 5.77 Mil/cmm (4.30-5.70) H 03/20/18 05:29 Hgb 16.6 gm/dL (12-16) 03/20/18 05:29 Hct 49.8 % (41.0-60) 03/20/18 05:29 MCV 86.4 fl (80-99) 03/20/18 05:29 MCH 28.8 pg (26.0-30.0) 03/20/18 05:29 MCHC Differential 33.3 pg (28.0-36.0) 03/20/18 05:29 RDW 13.2 % (11.5-20.0) 03/20/18 05:29 Plt Count 257 Th/cmm (150-400) 03/20/18 05:29 MPV 6.2 fl 03/20/18 05:29 Neutrophils % 59.7 % (40.0-80.0) 03/20/18 05:29 Lymphocytes % 30.7 % (20.0-50.0) 03/20/18 05:29 Monocytes % 7.2 % (2.0-10.0) 03/20/18 05:29 Eosinophils % 2.3 % (0.0-5.0) 03/20/18 05:29 Basophils % 0.1 % (0.0-2.0) 03/20/18 05:29 Sodium 133 mEq/L (136-145) L 03/20/18 05:29 Potassium 3.7 mEq/L (3.5-5.1) 03/20/18 05:29 Chloride 101 mEq/L (98-107) 03/20/18 05:29 Carbon Dioxide 22.7 mEq/L (21.0-31.0) 03/20/18 05:29 Anion Gap 13.0 (7.0-16.0) 03/20/18 05:29 BUN 10 mg/dL (7-25) 03/20/18 05:29 Creatinine 0.7 mg/dL (0.7-1.3) 03/20/18 05:29 Est GFR ( Amer) > 60.0 ml/min (>90) 03/20/18 05:29 Est GFR (Non-Af Amer) > 60.0 ml/min 03/20/18 05:29 BUN/Creatinine Ratio 14.3 03/20/18 05:29 Glucose 112 mg/dL (70-105) H 03/20/18 05:29 Calcium 8.6 mg/dL (8.6-10.3) 03/20/18 05:29 Magnesium 1.9 mg/dL (1.9-2.7) 03/20/18 05:29 Total Bilirubin 0.4 mg/dL (0.3-1.0) 03/17/18 18:15 AST 27 U/L (13-39) 03/17/18 18:15 ALT 35 U/L (7-52) 03/17/18 18:15 Alkaline Phosphatase 56 U/L (34-104) 03/17/18 18:15 Ammonia 90 umol/L (16-53) H 03/19/18 08:51 B-Natriuretic Peptide 19.5 pg/mL (5.0-100.0) 03/19/18 08:51 Total Protein 7.0 gm/dL (6.0-8.3) 03/17/18 18:15 Albumin 4.2 gm/dL (4.2-5.5) 03/17/18 18:15 Globulin 2.8 gm/dL 03/17/18 18:15 Albumin/Globulin Ratio 1.5 (1.0-1.8) 03/17/18 18:15 Phenobarbital 12.7 ug/ml (10-40.0) 03/17/18 18:15 - Physical Exam Vitals and I&O: Vital Signs Temp 96.9 F 03/21/18 12:50 Pulse 73 03/21/18 12:50 Resp 18 03/21/18 12:50 BP 140/72 03/21/18 12:50 Pulse Ox 99 03/21/18 12:50 Intake & Output 03/20/18 03/21/18 03/21/18 18:59 06:59 18:59 Intake Total 270 270 0 Output Total 2 3 Balance 268 270 -3 Weight (lbs) 180 lb 11.2 oz 188 lb 188 lb Intake: Intake, IV Amount 270 270 Levetiracetam 2,000 mg In 270 270 Sodium Chloride 0.9% 250 ml @ 250 mls/hr IV Q12H [facility] Rx#:[id number] Oral 0 0 Output: Urine 2 3 Other: # Bowel Movements 0 0 Weight Source Patient stated Bedscale Bedscale Active Medications: Current Medications Acetaminophen (Tylenol) 650 mg PO Q4H PRN PRN Reason: Pain or Fever >101 Stop: 05/16/18 23:30 Acetaminophen/Codeine Phosphate (Tylenol W/Codeine #3) 1 tab PO Q24H PRN PRN Reason: Pain (Moderate) Stop: 05/17/18 08:59 Albuterol Sulfate (Albuterol 2.5mg/3ml Neb Ud) 2.5 mg HHN Q2HRT PRN PRN Reason: Shortness of Breath or Wheeze Stop: 05/16/18 20:06 Benztropine Mesylate (Cogentin) 2 mg PO BID [facility] Stop: 05/17/18 08:59 Last Admin: 03/21/18 09:14 Dose: 2 mg Calcium/Vitamin D (Oscal W/Vitamin D) 1 tab PO BID [facility] Stop: 05/17/18 08:59 Last Admin: 03/21/18 09:13 Dose: 1 tab Cholecalciferol (Vitamin D3) 2,000 iu PO DAILY [facility] Stop: 05/17/18 08:59 Last Admin: 03/21/18 09:14 Dose: 2,000 iu Docusate Sodium (Colace) 250 mg PO BID [facility] Stop: 05/17/18 08:59 Last Admin: 03/21/18 09:14 Dose: 250 mg Guaifenesin/Dextromethorphan (Robitussin Dm) 10 ml PO Q6H PRN PRN Reason: Cough Stop: 05/16/18 23:36 Ipratropium [place] (Atrovent Neb 0.5mg/2.5ml) 0.5 mg HHN Q2HRT PRN PRN Reason: Shortness of Breath or Wheeze Stop: 05/16/18 20:06 Lactobacillus Rhamnosus (Culturelle 15b) 1 each PO DAILY [facility] Stop: 05/17/18 08:59 Last Admin: 03/21/18 09:14 Dose: 1 each Lactulose (Cephulac) 30 gm PO TID [facility] Stop: 05/16/18 21:29 Last Admin: 03/21/18 13:14 Dose: Not Given Lamotrigine (Lamictal) 100 mg PO BID [facility]; Protocol Stop: 05/17/18 08:59 Last Admin: 03/21/18 09:14 Dose: 100 mg Levetiracetam (Keppra) 2,000 mg PO BID [facility] Stop: 05/20/18 16:59 Levocarnitine (Carnitor) 990 mg PO TID [facility] Stop: 05/16/18 20:59 Last Admin: 03/21/18 13:14 Dose: Not Given Levothyroxine Sodium (Synthroid) 0.075 mg PO QDAC [facility] Stop: 05/17/18 07:29 Last Admin: 03/21/18 06:46 Dose: Not Given Loratadine (Claritin) 10 mg PO Q24HR PRN PRN Reason: Allergy Symptoms Stop: 05/16/18 20:01 Lorazepam (Ativan) 1 mg IV Q4H PRN; Protocol PRN Reason: Seizure Stop: 05/16/18 20:06 Magnesium Oxide (Mag-Oxide) 400 mg PO BID [facility] Stop: 05/17/18 08:59 Last Admin: 03/21/18 09:13 Dose: 400 mg Ondansetron HCl (Zofran) 4 mg IV Q8H PRN PRN Reason: Nausea / Vomiting Stop: 05/16/18 20:06 Phenobarbital (Phenobarbital) 97.2 mg PO BID [facility] Stop: 05/17/18 13:29 Last Admin: 03/21/18 09:13 Dose: 97.2 mg Sodium Chloride (Nacl Tab) 2 gm PO DAILY [facility] Stop: 05/17/18 08:59 Last Admin: 03/21/18 09:14 Dose: 2 gm Tamsulosin HCl (Flomax) 0.4 mg PO BID [facility] Stop: 05/17/18 16:59 Last Admin: 03/21/18 09:13 Dose: 0.4 mg Topiramate (Topamax) 200 mg PO BID [facility] Stop: 05/16/18 23:44 Last Admin: 03/21/18 09:13 Dose: 200 mg Ziprasidone (Geodon) 20 mg PO HS [facility]; Protocol Stop: 05/16/18 20:59 Last Admin: 03/20/18 20:07 Dose: Not Given General: demented, disheveled HEENT: NC/AT, PERRLA Neck: deformity Lungs: congested Cardiovascular: RRR, Normal S1, Normal S2 Abdomen: soft, positive bowel sound Extremities: excoriation, contracture, deformity Nutritional Asmnt/Malnutr-PDOC - Dietary Evaluation Malnutrition Findings (Please click <Entered> for more info): Nutritional Asmnt/Malnutrition Start: 03/18/18 16: 53 Text: Status: Complete Freq: Protocol: Document 03/18/18 16:53 LCHENG (Rec: 03/18/18 17:17 [email or web address] [email or web address]) Nutritional Asmnt/Malnutrition Patient General Information Nutritional Screening High Risk Diagnosis uncontrolled seizures Pertinent Medical Hx/Surgical Hx HTN, thyroid disorder, arthritis, elevated ammonia, cerabral palsy, mental retardation, spastic diplegia Subjective Information Pt seen lying in bed, AO x 1, non-verbal. Pt is on NPO exept for medication. Per nuser note, pt refused medication today. Current Diet Order/ Nutrition Support NPO Pertinent Medications oscal w/vit D, vit D3, D5-0.9% ns, colace, culturelle, synthroid, mag-oxide, nacl tab Pertinent Labs 03/17 na 133 Nutritional Hx/Data Height 5 ft 9 in Height (Calculated Centimeters) 175.3 Current Weight (lbs) 179 lb Weight (Calculated Kilograms) 81.2 Weight (Calculated Grams) 14500.0 [place] Body Weight 160 Body Mass Index (BMI) 26.4 Weight Status Overweight GI Symptoms GI Symptoms None Last BM none noted Difficult in: None Skin Integrity/Comment: rashes at the left back, bilat heels redness, sacrococyx redness Estimated Nutritional Goals BEE in Kcals: Using Current wt Calories/Kcals/Kg 23-27 Kcals Calculated 0173-3967 Protein: Using Current wt Protein g/k.8-1 Protein Calculated 65-81 Fluid: ml 1863-2187ml (1ml/kcal) Nutritional Problem 1. Problem Problem altered nutrition related labs Etiology electrolytes imbalance Signs/Symptoms: Na 133 Malnutrition Alert Is there a minimum of two criteria No selected? Query Text:Check all the applicable criteria. A minimum of two criteria are recommended for diagnosis of either severe or non-severe malnutrition. Malnutrition Related to Morbid Obesity Malnutrition related to morbid obesity No Intervention/Recommendation Comments 1. Monitor NPO status. Recommend swallow eval. 2. If oral diet initiated, recommend regular diet, texture per swallow eval. 3. Monitor PO intake, wt, labs and skin integrity 4. F/U as high risk in 2-3 days, 03/20-03/21 Expected Outcomes/Goals Expected Outcomes/Goals 1. PO intake to meet at least 75% of nutritional needs with tolerance 2. Wt stability, skin to remain intact, labs to approach WNL.
--- NOTE | 2018-03-21 16:31 | Discharge Summary ---
DATE OF DISCHARGE: 03/21/2018 DICTATING FOR: Stefano Stephens D.O. DISCHARGE DIAGNOSES: Uncontrolled seizures, which has been stable; hypertension; hypothyroidism; cerebral palsy; mitral regurgitation; and spastic diplegia. HISTORY OF PRESENT ILLNESS: This is a 42-year-old male who is a resident of [facility], admitted to the telemetry unit due to uncontrolled seizures. PHYSICAL EXAMINATION: GENERAL: Elderly male, awake, alert, in no apparent distress. VITAL SIGNS: Stable. HEENT: Normocephalic, atraumatic. NECK: Supple. No mass. LUNGS: Clear. HEART: Regular rate and rhythm. ABDOMEN: Soft, nontender. HOSPITAL COURSE: During the hospital stay, the patient was admitted to the telemetry unit. The patient had a Neurology consultation as well as the patient was kept on IV Keppra since the patient was cheeking his oral Keppra. The patient did not have any fevers during the hospital stay. For this reason, the patient is stable for discharge. CONDITION UPON DISCHARGE: Fair. DISPOSITION: [facility]. JOB# [id number]
== END 2018-03-21 14:30 | DRG 101 ==
LOC: ER 17:00 → TELE 20:18
PROVIDERS: ADMIT Internal Medicine; ATTEND Internal Medicine
DX: G40.909 Epilepsy, unspecified, not intractable, without status epilepticus (principal); G80.1 Spastic diplegic cerebral palsy; F72 Severe intellectual disabilities; E03.9 Hypothyroidism, unspecified; I34.0 Nonrheumatic mitral (valve) insufficiency; I10 Essential (primary) hypertension; M19.90 Unspecified osteoarthritis, unspecified site
CPT/HCPCS: 36415-UA; 80048-TC; 80053-TC; 80184-TC; 80299-90; 82140-TC; 82607-90; 82746-90; 83735-TC; 83880-TC; 85025-TC; 94760; 96374; 96375; J1953; J7042; X3401; Z7610